=== PATIENT | female | born 1950 | race Caucasian/White ===

== ENCOUNTER 2019-04-04 11:42 | Day surgery (SDC) | payer OTHER, MEDICARE ==
[2019-04-04] MEDS ORDERED: ACETAMINOPHEN 325 MG TABLET (FP) ONE (12:27)
[2019-04-04] MEDS ORDERED: ACETAMINOPHEN 325 MG TABLET (FP) PO ONE (12:30)
[2019-04-04] MEDS ORDERED: ZOLEDRONIC ACID/MAN/WATER 5 MG/100 ML INFUS..BTL IVPB ONE (12:45)
[2019-04-04 15:21] VITALS: BP 144/86; PULSE 86; TEMP 98.4
== END 2019-04-04 13:50 | disposition home or self-care (01) ==
LOC: JCHEMO 11:42
PROVIDERS: ATTEND Family Medicine
PROC: 3E033GC Introduction of Other Therapeutic Substance into Peripheral Vein, Percutaneous Approach (ICD-10-PCS; principal; 2019-04-04)
DX: M81.0 Age-related osteoporosis without current pathological fracture (principal)
CPT/HCPCS: 96365; J3489

== ENCOUNTER 2023-01-17 04:53 | Emergency (ER) | payer MEDICARE, OTHER ==
[2023-01-17 04:59] VITALS: BMI 25.7
[2023-01-17] MEDS ORDERED: oxyCODONE HCL 5 MG TABLET PO ONE (05:45)
[2023-01-17] MEDS ORDERED: oxyCODONE HCL 5 MG TABLET ONE (05:48)
[2023-01-17] MEDS ORDERED: ONDANSETRON *ODT* 4 MG TABLET SL ONE (06:38)
[2023-01-17] MEDS ORDERED: ONDANSETRON *ODT* 4 MG TABLET ONE (06:39)
[2023-01-17 10:04] VITALS: BP 155/94; PULSE 101; RESP 20; TEMP 99
== END 2023-01-17 10:04 | disposition home or self-care (01) ==
LOC: JER 04:53
DX: M25.552 Pain in left hip (principal); R42 Dizziness and giddiness; R11.0 Nausea
CPT/HCPCS: 72170-TC-FY; 73502-TC-LT-FY; 99283-25; Q0162

== ENCOUNTER 2024-07-30 12:19 | Emergency (ER) | payer OTHER ==
[2024-07-30 12:26] VITALS: TEMP 98.4; BMI 25.7
[2024-07-30] MEDS ORDERED: ALBUTEROL SO4 2.5/IPRATROPIUM 0.5 INH SOL 3 ML VIAL.NEB. NEB ONE (13:40)
[2024-07-30] MEDS: ALBUTEROL SO4 2.5/IPRATROPIUM 0.5 INH SOL 3 ML VIAL.NEB. NEB ONE (13:49)
[2024-07-30 15:40] VITALS: BP 152/76; PULSE 103; RESP 20
== END 2024-07-30 16:09 | disposition home or self-care (01) ==
LOC: JER 12:19
PROC: 3E0F7GC Introduction of Other Therapeutic Substance into Respiratory Tract, Via Natural or Artificial Opening (ICD-10-PCS; principal; 2024-07-30)
DX: U07.1 COVID-19 (principal); R53.1 Weakness; R05.9 Cough, unspecified; R06.02 Shortness of breath; R09.81 Nasal congestion; R07.89 Other chest pain
CPT/HCPCS: 0241U-QW; 71046-TC-FY; 93005; 93010; 99285-25